=== PATIENT | female | born 1985 | race African-American/Black ===

== ENCOUNTER 2020-11-07 11:17 | Emergency (ER) | payer OTHER ==
[~2020-11-07] VITALS: Ht 162.6 cm; Wt 99.8 kg
[2020-11-07] MEDS ORDERED: COZAAR 50 MG TA50 MG PO (12:04)
[2020-11-07 12:18] VITALS: BP 145/100
== END 2020-11-07 12:18 | disposition home or self-care (01) ==
LOC: ER 11:17
DX: I10 Essential (primary) hypertension (principal)